=== PATIENT | male | born 1990 | race Caucasian/White ===

== ENCOUNTER 2020-11-10 08:03 | Outpatient (REF) | payer OTHER, SELFPAY ==
[2020-11-10 09:06] LABS: MANUAL DIFF FLAG NO
[2020-11-10 09:10] LABS: Basophils Percent Auto 0.5 % (0-2); Eosinophils Absolute Auto 0.1 X10*3/uL (0.0-0.4); Eosinophils Percent Auto 1.2 % (0-4); Hemoglobin 15.6 g/dl (14.0-18.0); Imm Gran Abs Auto 0.01 X10*3/uL (0.00-0.03); Imm Gran Pct Auto 0.2 % (0.0-0.4); Lymphocytes Absolute Auto 1.9 X10*3/uL (1.2-4.9); Lymphocytes Percent Auto 33.2 % (20-40); Mean Corpuscular HGB Conc 33.2 g/dl (31.0-36.0); Mean Corpuscular Volume 93.3 fL (80-98); Mean Platelet Volume 10.1 fL (9.4-12.4); Monocytes Absolute Auto 0.4 X10*3/uL (0.1-1.2); Monocytes Percent Auto 7.1 % (2-11); Neutrophils Absolute Auto 3.3 X10*3/uL (2.0-8.3); Neutrophils Percent Auto 57.8 % (45-73); Platelet Count 209 X10*3/uL (160-400); Red Blood Count 5.04 X10*6/uL (4.60-5.80); Red Cell Distribution Width 12.6 % (11.0-16.0); White Blood Count 5.8 X10*3/uL (4.8-10.8)
[2020-11-10 09:50] LABS: Alanine Aminotransferase 49 U/L (0-40); Albumin Level 4.9 g/dL (3.5-5.0); Alkaline Phosphatase 43 U/L (39-117); Anion Gap 12 (12-20); Aspartate Amino Transferase 24 U/L (5-37); Bilirubin Total 0.8 mg/dL (0.0-1.0); Blood Urea Nitrogen 18 mg/dL (9-16); Calcium 9.5 mg/dL (8.4-10.2); Carbon Dioxide 29 mmol/L (22-29); Chloride 105 mmol/L (96-108); Cholesterol 202 mg/dL; Estimated Glomerular Filt Rate > 60; Glucose Fasting 84 mg/dL (60-99); HDL Cholesterol 27 mg/dL; LDL Cholesterol Calculated 159 mg/dl; Potassium 4.9 mmol/l (3.3-5.1); Sodium 141 mmol/L (135-145); Total Protein 7.1 g/dL (6.5-8.0); Triglycerides 80 mg/dL
== END 2020-11-10 08:04 | disposition home or self-care (01) ==
LOC: HO.LAB 08:03
PROVIDERS: PCP Internal Medicine; Visit Provider Physician Assistant
DX: Z00.00 Encounter for general adult medical examination without abnormal findings (principal); Z13.6 Encounter for screening for cardiovascular disorders
CPT/HCPCS: 36415; 80053; 80061; 85025

== ENCOUNTER 2022-02-04 16:04 | Outpatient (REF) | payer OTHER, SELFPAY ==
[2022-02-04 19:32] LABS: Alanine Aminotransferase 39 U/L (0-40); Albumin Level 4.8 g/dL (3.5-5.0); Alkaline Phosphatase 79 U/L (39-117); Anion Gap 11 (12-20); Aspartate Amino Transferase 24 U/L (5-37); Bilirubin Total 0.3 mg/dL (0.0-1.0); Blood Urea Nitrogen 22 mg/dL (9-16); Calcium 9.9 mg/dL (8.4-10.2); Carbon Dioxide 30 mmol/L (22-29); Chloride 103 mmol/L (96-108); Estimated Glomerular Filt Rate > 60; Glucose Random 85 mg/dL (60-115); Potassium 3.7 mmol/L (3.3-5.1); Sodium 140 mmol/L (135-145); Total Protein 7.2 g/dL (6.5-8.0)
== END 2022-02-04 16:05 | disposition home or self-care (01) ==
LOC: HO.MANLDS 16:04
PROVIDERS: PCP Physician Assistant; Visit Provider Physician Assistant
DX: Z00.00 Encounter for general adult medical examination without abnormal findings (principal)
CPT/HCPCS: 36415; 80053

== ENCOUNTER → 2022-10-01 14:57 | Outpatient (BNVA) | payer SELFPAY | PROVIDERS: PCP Physician Assistant; Visit Provider Internal Medicine | DX: Z02.79 Encounter for issue of other medical certificate (principal) ==

== ENCOUNTER 2023-02-24 08:00 | Outpatient (REF) | payer OTHER, SELFPAY ==
[2023-03-01 12:09] LABS: Testosterone, Free 119.7 pg/mL (35.0-155.0); Testosterone, Total 503 ng/dL (250-1100)
== END 2023-02-24 08:01 | disposition home or self-care (01) ==
LOC: HO.MANLDS 08:00
PROVIDERS: Visit Provider Physician Assistant
DX: R89.1 Abnormal level of hormones in specimens from other organs, systems and tissues (principal)
CPT/HCPCS: 36415; 84402; 84403

== ENCOUNTER 2024-05-05 08:00 | Outpatient (REF) | payer OTHER, SELFPAY ==
[2024-05-05 13:21] LABS: MANUAL DIFF FLAG NO
[2024-05-05 13:29] LABS: Basophils Percent Auto 0.5 % (0-2); Eosinophils Absolute Auto 0.1 X10*3/uL (0.0-0.4); Eosinophils Percent Auto 1.3 % (0-4); Hematocrit 50.2 % (42.0-52.0); Hemoglobin 17.2 g/dl (14.0-18.0); Imm Gran Abs Auto 0.02 X10*3/uL (0.00-0.03); Imm Gran Pct Auto 0.3 % (0.0-0.4); Lymphocytes Absolute Auto 1.5 X10*3/uL (1.2-4.9); Mean Corpuscular HGB Conc 34.3 g/dl (31.0-36.0); Mean Corpuscular Hemoglobin 31.7 pg (27.0-33.0); Mean Corpuscular Volume 92.6 fL (80.0-98.0); Mean Platelet Volume 11.5 fL (9.4-12.4); Monocytes Absolute Auto 0.5 X10*3/uL (0.1-1.2); Neutrophils Percent Auto 64.9 % (45-73); Platelet Count 162 X10*3/uL (160-400); Red Blood Count 5.42 X10*6/uL (4.60-5.80); White Blood Count 6.1 X10*3/uL (4.8-10.8)
[2024-05-05 14:43] LABS: Prostate Specific Antigen 0.71 ng/mL (<0.05-4.0)
[2024-05-20 13:08] LABS: Testosterone, Total 1126 ng/dL (250-1100)
== END 2024-05-05 08:01 | disposition home or self-care (01) ==
LOC: HO.MANLDS 08:00
PROVIDERS: Visit Provider Physician Assistant
DX: N40.1 Benign prostatic hyperplasia with lower urinary tract symptoms (principal); Z12.5 Encounter for screening for malignant neoplasm of prostate
CPT/HCPCS: 36415; 84153; 84402; 84403; 85025

== ENCOUNTER 2024-05-25 11:15 | Outpatient (REF) | payer OTHER, SELFPAY ==
[2024-05-29 21:53] LABS: Testosterone, Free 222.5 pg/mL (35.0-155.0); Testosterone, Total 1165 ng/dL (250-1100)
== END 2024-05-25 11:16 | disposition home or self-care (01) ==
LOC: HO.MANLDS 11:15
PROVIDERS: Visit Provider Physician Assistant
DX: R89.1 Abnormal level of hormones in specimens from other organs, systems and tissues (principal)
CPT/HCPCS: 36415; 84402; 84403